=== PATIENT | female | born 1985 | race Caucasian/White ===

== ENCOUNTER → 2022-04-08 12:22 | Outpatient (BNVA) | payer OTHER, SELFPAY | PROVIDERS: PCP Family Medicine; Visit Provider Internal Medicine Rheumatology | DX: Z79.899 Other long term (current) drug therapy (principal); M19.90 Unspecified osteoarthritis, unspecified site; R76.8 Other specified abnormal immunological findings in serum; M45.6 Ankylosing spondylitis lumbar region | CPT/HCPCS: 72202; 73130; 80076; 82306; 82565; 84439; 84443; 85025; 85651; 86140; 86160; 86162; 86200; 86235; 86255; 86376; 86431; 86812 ==

== ENCOUNTER 2022-07-05 08:30 | Outpatient (CLI) | payer OTHER, SELFPAY ==
--- NOTE | 2022-07-05 08:30 | FL_ITS ---
WS: [id number] FL barium swallow [id number] REASON FOR EXAM: R13.10 - Dysphagia, unspecified FLUOROSCOPY TIME: 1min [id number] # OF SPOT FILMS: 7 Patient was examined in the upright and WOLF positions. Swallowing of barium was monitored fluoroscopi clement with multiple spot films for documentation. Esophagus was examined from the oropharynx to the fundus of the stomach. FINDINGS: The cervical esophagus was normal. There was no dilatation of the esophagus and there was no narrowing of the gastroesophageal junction. There was no hiatal hernia and no gastroesophageal reflux. The esophageal motility was normal and the upright position. In the WOLF position there was a single i nstance of barium retention in the mid esophagus which cleared with an additional swallow. There was no retrograde movement of the barium. There were no tertiary contractions. FL/FL barium swallow [id number] IMPRESSION: There was minimal alteration of the esophageal motility in the WOLF position. Th is finding is nonspecific and could not be identified in the upright position. No findings of scleroderma.
[2022-07-05 10:24] LABS: Basophils % 0.6 %; Eosinophils # 0.1 10^3/uL (0.0-0.8); Eosinophils % 1.8 %; Hematocrit 42.2 % (37.0-47.0); Hemoglobin 14.1 g/dL (11.5-15.3); Lymphocytes # 1.4 10^3/uL (0.8-4.8); Lymphocytes % 28.3 %; Mean Corpuscular HGB Conc 33.4 g/dL (30.0-36.0); Mean Corpuscular Volume 89.8 fl (81-99); Mean Platelet Volume 10.6 fL (7.4-10.4); Monocytes # 0.4 10^3/uL (0.2-0.9); Monocytes % 8.2 %; Neutrophils # 2.92 10^3/uL (1.8-7.7); Neutrophils % 59.9 %; Nucleated Red Blood Cells % 0 %; Platelet Count 196 10^3/cmm (130-400); Red Cell Distribution Width 12.2 % (12.1-15.1); White Blood Count 4.9 10^3/uL (4.0-10.0)
[2022-07-05 10:50] LABS: Alanine Aminotransferase 12 U/L (0-33); Albumin Level 4.5 g/dL (3.5-5.2); Alkaline Phosphatase 49 U/L (35-105); Aspartate Amino Transferase 13 U/L (0-32); Globulin 2.2 g/dL (1.3-4.6); Glomerular Filtration Rate 94.2 mL/min (90-130); Total Bilirubin 0.4 mg/dL (0.15-1.2); Total Protein 6.7 g/dL (6.6-8.7)
== END 2022-07-05 08:31 | disposition home or self-care (01) ==
PROVIDERS: PCP Family Medicine; Visit Provider Internal Medicine Rheumatology
DX: R13.10 Dysphagia, unspecified (principal); M54.89 Other dorsalgia; Z79.899 Other long term (current) drug therapy
CPT/HCPCS: 36415; 74220; 80076; 82565; 85025; 86140

== ENCOUNTER 2022-07-21 07:28 | Outpatient (CLI) | payer OTHER, SELFPAY ==
[2022-07-21 07:47] VITALS: PULSE 95; RESP 18; O2SAT 99
[2022-07-21] MEDS: albuterol 2.5 mg/3 mL Neb INHALATION (07:47)
[2022-07-21 07:52] VITALS: PULSE 94
== END 2022-07-21 07:29 | disposition home or self-care (01) ==
LOC: RT 07:28
PROVIDERS: PCP Family Medicine; Visit Provider Internal Medicine Rheumatology
DX: R06.02 Shortness of breath (principal)
CPT/HCPCS: 94060; 94726; 94729; J7613

== ENCOUNTER 2022-08-05 16:29 | Outpatient (CLI) | payer OTHER, SELFPAY ==
--- NOTE | 2022-08-05 | XR_ITS ---
WS: [email or web address] Chest 2 views, 08/05/2022 Clinical Data: R13.10 - Dysphagia, unspecified Comparison: None. Findings: No nodules, masses or effusions are seen. The heart is normal. The pulmonary vascularity is not increased. No pneumonia or pneumothorax is seen. XR/XR chest 2V* [id number] Impression: Negative chest.
[2022-08-05 17:56] LABS: Basophils % 0.6 %; Eosinophils # 0.1 10^3/uL (0.0-0.8); Hematocrit 39.3 % (37.0-47.0); Hemoglobin 13.3 g/dL (11.5-15.3); Lymphocytes # 1.5 10^3/uL (0.8-4.8); Lymphocytes % 23.1 %; Mean Corpuscular HGB Conc 33.8 g/dL (30.0-36.0); Mean Corpuscular Hemoglobin 30.5 pg (28.0-34.0); Mean Corpuscular Volume 90.1 fl (81-99); Mean Platelet Volume 10.4 fL (7.4-10.4); Monocytes # 0.5 10^3/uL (0.2-0.9); Monocytes % 7.8 %; Neutrophils # 4.31 10^3/uL (1.8-7.7); Nucleated Red Blood Cells % 0 %; Platelet Count 211 10^3/cmm (130-400); Red Blood Count 4.36 10^6/uL (4.1-5.3); Red Cell Distribution Width 12.4 % (12.1-15.1); White Blood Count 6.5 10^3/uL (4.0-10.0)
[2022-08-05 18:14] LABS: Alanine Aminotransferase 12 U/L (0-33); Albumin Level 4.5 g/dL (3.5-5.2); Alkaline Phosphatase 47 U/L (35-105); Aspartate Amino Transferase 19 U/L (0-32); Globulin 2.1 g/dL (1.3-4.6); Glomerular Filtration Rate 80.7 mL/min (90-130); Total Bilirubin 0.2 mg/dL (0.15-1.2); Total Protein 6.6 g/dL (6.6-8.7)
== END 2022-08-05 16:30 | disposition home or self-care (01) ==
PROVIDERS: PCP Family Medicine; Visit Provider Internal Medicine Rheumatology
DX: R13.10 Dysphagia, unspecified (principal); R06.02 Shortness of breath; R76.8 Other specified abnormal immunological findings in serum; M54.89 Other dorsalgia; Z79.899 Other long term (current) drug therapy
CPT/HCPCS: 36415; 71046; 80076; 82565; 85025; 86140

== ENCOUNTER 2022-08-17 06:54 | Outpatient (CLI) | payer OTHER, SELFPAY ==
--- NOTE | 2022-08-17 07:00 | CT_ITS ---
WS: [email or web address] EXAMINATION: CT abdomen wo con [id number] REASON FOR EXAM: M34.9 - Systemic sclerosis, unspecified COMPARISON: None available. IV CONTRAST: None TOTAL EXAM DLP: 156.[address] scans at [facility] use at least one of these dose optimization techniques: automated e xposure control; mA and/or kV adjustment per patient size (includes targeted exams where dose is matc hed to clinical indication); or iterative reconstruction. FINDINGS: Lung bases are clear. Liver is unremarkable. No bile duct dilatation. There is borderline splenomegal y without focal abnormality. The gallbladder appears to contain very subtle heterogeneity which is co nsistent with sludge and probable small pigment gallstones without wall thickening. The pancreas and adrenal glands are unremarkable. The kidneys are normal in outline. There is a focus of slight hyperd ensity on axial image 32 in the mid right kidney calyx which could represent an infundibular calcific ation or a small nonobstructing calculus. The partially visualized bowel demonstrates constipation wi th increased fecal loading of the colon. CT/CT abdomen wo con [id number] IMPRESSION: Borderline splenomegaly. Cholelithiasis this may be better evaluated and quantified by gallbladder ultra sound if clinically indicated Possible nonobstructing mid right renal calculus or infundibular calcification
== END 2022-08-17 06:55 | disposition home or self-care (01) ==
LOC: RAD 06:55
PROVIDERS: PCP Family Medicine; Visit Provider Internal Medicine Rheumatology
DX: M34.9 Systemic sclerosis, unspecified (principal); R16.1 Splenomegaly, not elsewhere classified; K80.20 Calculus of gallbladder without cholecystitis without obstruction
CPT/HCPCS: 74150

== ENCOUNTER 2022-10-28 07:50 | Outpatient (CLI) | payer OTHER, SELFPAY ==
--- NOTE | 2022-10-28 08:00 | US_ITS ---
WS: [id number] Complex nodule measures 2.0 x 1.4 x 1.9 cm. US pelv w/transvag [id number] HISTORY: PELVIC PAIN/RT OVARY TENDERNESS COMPARISON: None available. Prior hysterectomy for fibroids. No midline mass. Right ovary: 3.0 cm x 3.4 cm x 2.0 cm. Normal size and vascularity, no cystic or solid masses. Small complex follicle in the RIGHT ovary. Left ovary: 3.1 cm x 2.3 cm x 1.8 cm. Normal size and vascularity, no cystic or solid masses. Tiny fo llicles. No free fluid in the cul-de-sac. US/US pelv w/transvag [id number] IMPRESSION: 1. Status post hysterectomy. No midline mass or free fluid. 2. Minimally complex follicle RIGHT ovary. May be hemorrhagic. 3. No solid or cystic masses within the pelvis.
== END 2022-10-28 07:51 | disposition home or self-care (01) ==
PROVIDERS: PCP Family Medicine; Visit Provider Nurse Practitioner Family
DX: N94.89 Other specified conditions associated with female genital organs and menstrual cycle (principal); R10.2 Pelvic and perineal pain; Z90.710 Acquired absence of both cervix and uterus
CPT/HCPCS: 76830; 76856

== ENCOUNTER 2023-01-14 09:25 | Outpatient (CLI) | payer OTHER, SELFPAY ==
[2023-01-14 10:24] LABS: Bilirubin Urine Neg (Negative); Blood Urine Neg (Negative); Glucose Urine UA Norm (Normal); Ketones Urine Negative (Negative); Leukocyte Esterase Urine Negative (Negative); Nitrate Urine Negative (Negative); Protein Urine Neg (Negative); Specific Gravity, Urine 1.015 (1.005-1.030); Urine Appearance Clear (CLEAR); Urine Color Yellow (Yellow); Urobilinogen Urine Norm (Negative); pH Urine 6 (5-7)
[2023-01-14 10:32] LABS: Erythrocyte Sedimentation Rate < 1 mm/hr (0-15)
[2023-01-14 10:34] LABS: Bacteria Urine TRACE /hpf; RBC Urine RARE /hpf (0-2); Squamous Epithelial Cell Urine RARE /hpf (0-5); WBC Urine RARE /hpf (0-5)
== END 2023-01-14 09:26 | disposition home or self-care (01) ==
PROVIDERS: PCP Family Medicine; Visit Provider Internal Medicine Rheumatology
DX: M54.89 Other dorsalgia (principal); Z79.899 Other long term (current) drug therapy
CPT/HCPCS: 36415; 81001; 85651; 86140

== ENCOUNTER 2023-06-09 10:28 | Outpatient (CLI) | payer OTHER, SELFPAY ==
[2023-06-09 10:57] LABS: Eosinophils # 0.1 10^3/uL (0.0-0.8); Eosinophils % 1.2 %; Hematocrit 41.3 % (36-47); Lymphocytes # 1.1 10^3/uL (0.8-4.8); Lymphocytes % 26.2 %; Mean Corpuscular HGB Conc 33.9 g/dL (30-55); Mean Corpuscular Hemoglobin 31.3 pg (27-33); Mean Corpuscular Volume 92.2 fl (85-98); Monocytes # 0.3 10^3/uL (0.2-0.9); Monocytes % 6.4 %; Neutrophils # 2.63 10^3/uL (1.8-7.7); Neutrophils % 64.5 %; Nucleated Red Blood Cells % 0 %; Platelet Count 196 10^3/cmm (157-399); Red Blood Count 4.48 10^6/uL (3.85-5.65); White Blood Count 4.08 10^3/uL (3.29-11.43)
[2023-06-09 11:20] LABS: Alanine Aminotransferase 17 U/L (0-33); Albumin Level 4.2 g/dL (3.5-5.2); Alkaline Phosphatase 31 U/L (35-105); Aspartate Amino Transferase 19 U/L (0-32); Globulin 2.6 g/dL (1.3-4.6); Glomerular Filtration Rate 93.6 mL/min (90-130); Total Bilirubin 0.5 mg/dL (0.15-1.2); Total Protein 6.8 g/dL (6.6-8.7)
== END 2023-06-09 10:29 | disposition home or self-care (01) ==
PROVIDERS: PCP Nurse Practitioner Family; Visit Provider Internal Medicine Rheumatology
DX: M19.90 Unspecified osteoarthritis, unspecified site (principal); Z79.899 Other long term (current) drug therapy
CPT/HCPCS: 36415; 80076; 82565; 85025; 86140

== ENCOUNTER 2023-11-22 15:42 | Outpatient (CLI) | payer OTHER, SELFPAY ==
[2023-11-22 16:17] LABS: Basophils % 0.5 %; Eosinophils # 0.1 10^3/uL (0.0-0.8); Eosinophils % 2.1 %; Hematocrit 39.9 % (36-47); Lymphocytes # 1.5 10^3/uL (0.8-4.8); Lymphocytes % 26.4 %; Mean Corpuscular HGB Conc 34.8 g/dL (30-55); Mean Corpuscular Hemoglobin 32.1 pg (27-33); Mean Corpuscular Volume 92.1 fl (85-98); Mean Platelet Volume 10.7 fL (7.4-10.4); Monocytes # 0.4 10^3/uL (0.2-0.9); Monocytes % 7.5 %; Nucleated Red Blood Cells % 0 %; Platelet Count 179 10^3/cmm (157-399); Red Blood Count 4.33 10^6/uL (3.85-5.65); Red Cell Distribution Width 11.9 % (12.1-15.1); White Blood Count 5.72 10^3/uL (3.29-11.43)
[2023-11-22 16:38] LABS: Alanine Aminotransferase 18 U/L (0-33); Albumin Level 4.4 g/dL (3.5-5.2); Alkaline Phosphatase 53 U/L (35-105); Aspartate Amino Transferase 18 U/L (0-32); Globulin 2.3 g/dL (1.3-4.6); Glomerular Filtration Rate 93.6 mL/min (90-130); Total Bilirubin 0.4 mg/dL (0.15-1.2); Total Protein 6.7 g/dL (6.6-8.7)
== END 2023-11-22 15:43 | disposition home or self-care (01) ==
LOC: LAB 15:43
PROVIDERS: PCP Nurse Practitioner Family; Visit Provider Internal Medicine Rheumatology
DX: Z79.899 Other long term (current) drug therapy (principal); M19.90 Unspecified osteoarthritis, unspecified site
CPT/HCPCS: 36415; 80076; 82565; 85025; 86140

== ENCOUNTER 2024-04-16 10:50 | Outpatient (CLI) | payer OTHER, SELFPAY ==
[2024-04-16 11:21] LABS: Basophils # 0.1 10^3/uL (0.0-0.1); Basophils % 0.6 %; Eosinophils # 0.1 10^3/uL (0.0-0.8); Eosinophils % 1.1 %; Hematocrit 38.4 % (36-47); Lymphocytes # 1.7 10^3/uL (0.8-4.8); Mean Corpuscular HGB Conc 34.1 g/dL (30-55); Mean Corpuscular Hemoglobin 32.3 pg (27-33); Mean Corpuscular Volume 94.6 fl (85-98); Mean Platelet Volume 10.1 fL (7.4-10.4); Monocytes # 0.5 10^3/uL (0.2-0.9); Monocytes % 6.5 %; Neutrophils # 5.47 10^3/uL (1.8-7.7); Neutrophils % 68.7 %; Nucleated Red Blood Cells % 0 %; Platelet Count 159 10^3/cmm (157-399); Red Blood Count 4.06 10^6/uL (3.85-5.65); Red Cell Distribution Width 12.4 % (12.1-15.1); White Blood Count 7.97 10^3/uL (3.29-11.43)
[2024-04-16 11:25] LABS: Erythrocyte Sedimentation Rate < 1 mm/hr (0-15)
[2024-04-16 11:43] LABS: Alanine Aminotransferase 16 U/L (0-33); Albumin Level 4.2 g/dL (3.5-5.2); Alkaline Phosphatase 42 U/L (35-105); Aspartate Amino Transferase 18 U/L (0-32); Globulin 2.2 g/dL (1.3-4.6); Glomerular Filtration Rate 80.3 mL/min (90-130); Total Bilirubin 0.4 mg/dL (0.15-1.2); Total Protein 6.4 g/dL (6.6-8.7)
== END 2024-04-16 10:51 | disposition home or self-care (01) ==
LOC: LAB 10:51
PROVIDERS: PCP Nurse Practitioner Family; Visit Provider Internal Medicine Rheumatology
DX: Z79.899 Other long term (current) drug therapy (principal); M19.90 Unspecified osteoarthritis, unspecified site
CPT/HCPCS: 36415; 80076; 82565; 85025; 85651; 86140

== ENCOUNTER 2024-07-02 10:14 | Outpatient (CLI) | payer OTHER, SELFPAY ==
[2024-07-02 10:39] LABS: Basophils % 0.7 %; Eosinophils # 0.1 10^3/uL (0.0-0.8); Eosinophils % 1.6 %; Hematocrit 41.8 % (36-47); Lymphocytes # 1.2 10^3/uL (0.8-4.8); Lymphocytes % 21.6 %; Mean Corpuscular HGB Conc 33.7 g/dL (30-55); Mean Corpuscular Hemoglobin 31.9 pg (27-33); Mean Corpuscular Volume 94.6 fl (85-98); Mean Platelet Volume 10.2 fL (7.4-10.4); Monocytes # 0.3 10^3/uL (0.2-0.9); Neutrophils # 3.79 10^3/uL (1.8-7.7); Neutrophils % 68.7 %; Nucleated Red Blood Cells % 0 %; Platelet Count 171 10^3/cmm (157-399); Red Blood Count 4.42 10^6/uL (3.85-5.65); White Blood Count 5.52 10^3/uL (3.29-11.43)
[2024-07-02 10:59] LABS: Alanine Aminotransferase 17 U/L (0-33); Albumin Level 4.4 g/dL (3.5-5.2); Alkaline Phosphatase 47 U/L (35-105); Aspartate Amino Transferase 17 U/L (0-32); Globulin 2.1 g/dL (1.3-4.6); Glomerular Filtration Rate 93.2 mL/min (90-130); Total Bilirubin 0.4 mg/dL (0.15-1.2); Total Protein 6.5 g/dL (6.6-8.7)
[2024-07-02 11:05] LABS: Erythrocyte Sedimentation Rate < 1 mm/hr (0-15)
== END 2024-07-02 10:15 | disposition home or self-care (01) ==
LOC: LAB 10:16
PROVIDERS: PCP Nurse Practitioner Family; Visit Provider Internal Medicine Rheumatology
DX: Z79.899 Other long term (current) drug therapy (principal); M54.89 Other dorsalgia; M19.90 Unspecified osteoarthritis, unspecified site
CPT/HCPCS: 36415; 80076; 82565; 85025; 85651; 86140